=== PATIENT | male | born 1965 | race Caucasian/White ===

== ENCOUNTER 2020-07-09 08:41 | Emergency (ER) | payer OTHER, SELFPAY ==
[2020-07-09 08:48] VITALS: BP 146/80; PULSE 58; RESP 18; TEMP 36.6; O2SAT 98
--- NOTE | 2020-07-09 08:57 | ED.LOWEXIN ---
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 He denies any injury he says he woke up this morning and noticed that there was swelling. He is worried that he may have a blood clot. Says 3 weeks ago he pulled his hamstring. He has an obvious bruise and swelling on his leg. He denies any fever chills or redness Related Data Home Medications Medication Instructions Recorded Confirmed ASPIRIN (Aspir-Low) 81 mg PO QDAY #0 11/09/12 warfarin [Coumadin] 7.5 mg PO #0 11/09/12 warfarin 10 mg PO #0 04/15/17 Review of Systems Review of Systems Narrative: GENERAL: Denies chills,fever HEENT: Denies throat pain RESPIRATORY: Denies dyspnea, cough, wheezing CARDIOVASCULAR: Denies chest pain, palpitations GASTROINTESTINAL: Denies nausea, vomiting MUSCULOSKELETAL: Denies extremity pain, injury SKIN: See HPI NEUROLOGIC: Denies weakness, dizziness, headache, numbness 8 point review of systems is negative except for those stated above and HPI Patient History Surgical History Mitral valve replaced (Acute) Exam Initial Vital Signs Initial Vital Signs: Vital Signs Temperature 97.8 F 07/09/20 08:48 Pulse Rate 58 L 07/09/20 08:48 Respiratory Rate 18 07/09/20 08:48 Blood Pressure 146/80 H 07/09/20 08:48 Pulse Oximetry 98 07/09/20 08:48 GENERAL: Well-appearing, well-nourished and in no acute distress. CARDIOVASCULAR: peripheral pulses in tact, cap refill <2 sec RESPIRATORY: No respiratory distress, speaks in full sentences without difficulty EXTREMITIES: Normal range of motion, no clubbing or edema. Neurovascularly intact NEUROLOGICAL: Cranial nerves II through XII grossly intact. Normal gait and speech. SKIN: No erythema no skin break or bite zulma 9 cm x 3 cm swelling with mild contusion on right medial tibia Course Vital Signs Vital signs: Vital Signs - 8 hr 07/09/20 08:48 Temperature 97.8 F Pulse Rate 58 L Respiratory Rate 18 Blood Pressure 146/80 H Pulse Oximetry 98 MDM - Extremity Injury (Lower) MDM Narrative Medical decision making narrative: Patient is on Coumadin this appears to be a bruise there is no break in the skin no erythema. Recommend he follow-up with his PCP and have his INR checked Discharge Plan Departure Patient Disposition: Home Clinical Impression: Contusion of leg, right Qualifiers: Encounter type: initial encounter Qualified Code(s): S80.11XA - Contusion of right lower leg, initial encounter Discharge Date/Time: 07/09/20 09:07 Instructions: Contusion Activity Restrictions/Additional Instructions: *You have been diagnosed with right leg contusion *What to do: Elevate, ice, may add Christian wrap or compression I expect that this swelling does go down however the bruising may appear worse. Likely because you are on warfarin. Please continue to have your INR checked and monitored with your PCP. *Continue to take medications as directed Tylenol 650 mg every 4-6 hours if needed for pain *Follow up with your primary care provider in 2-3 days *Return to ER if you should have redness increased swelling fever drainage inability to walk or any new, worsening or concerning symptoms Prescriptions: No Action ASPIRIN (Aspir-Low) 81 mg PO QDAY Qty: 0 RF: 0 warfarin [Coumadin] 7.5 MG tablet 7.5 mg PO Qty: 0 RF: 0 warfarin 10 MG tablet 10 mg PO Qty: 0 RF: 0
== END 2020-07-09 09:07 | disposition home or self-care (01) ==
PROVIDERS: Emergency Provider Emergency Medicine
DX: S80.11XA Contusion of right lower leg, initial encounter (principal); Z79.01 Long term (current) use of anticoagulants
CPT/HCPCS: 99281

== ENCOUNTER 2024-06-26 20:37 | Inpatient (IN) | payer OTHER, SELFPAY ==
[2024-06-26] VITALS (10 sets, daily range): BP systolic 118–158; BP diastolic 65–96; PULSE 72–104; RESP 14–22; TEMP 37; O2SAT 93–98; BMI 31.6
--- NOTE | 2024-06-26 20:59 | EKG_ITS ---
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
[2024-06-26 21:05] LABS: Add Manual Diff / Slide Review NO; Basophils Absolute Auto 0 /uL (0-100); Basophils Percent Auto 0.2 % (0-2); Eosinophils Absolute Auto 0 /uL (0-450); Eosinophils Percent Auto 0.3 % (2-4); Hematocrit 50.6 % (41-53); Hemoglobin 16.9 g/dL (13.5-17.5); Lymphocytes Absolute Auto 1300 /uL (1100-4500); Mean Corpuscular HGB Conc 33.4 % (30-36); Mean Corpuscular Hemoglobin 27.8 PG (26-34); Mean Corpuscular Volume 83.4 fL (80-100); Monocytes Absolute Auto 1300 /uL (0-900); Monocytes Percent Auto 8.7 % (3-14); Neutrophils Absolute Auto 11900 /uL (1500-7000); Neutrophils Percent Auto 81.8 % (50-75); Platelet Count 194 X10^3/uL (150-400); Red Blood Cell Count 6.07 X10^6/uL (4.5-5.9); Red Cell Distribution Width 15.8 % (11.6-14.8); White Blood Cell Count 14.6 X10^3/uL (4.5-11.0)
[2024-06-26 21:13] LABS: Ictotest Urine Negative (Negative)
[2024-06-26 21:23] LABS: Alanine Aminotransferase 21 IU/L (<50); Albumin 4.4 g/dL (3.5-5.0); Albumin Globulin Ratio 1.2 (1.0-2.8); Alkaline Phosphatase 56 U/L (38-126); Aspartate Aminotransferase 31 IU/L (17-59); BUN Creatinine Ratio 9.6 (6-22); Bilirubin Total 1.9 mg/dL (0.2-1.3); Blood Urea Nitrogen 11 mg/dL (9-20); Calcium 9.2 mg/dL (8.4-10.2); Carbon Dioxide 19 mmol/L (22-32); Chloride 104 mmol/L (98-107); Estimated Glomerular Filt Rate > 60 mL/min (>60); Globulin 3.7 g/dL (1.7-4.1); Glucose 115 mg/dL (80-110); HEMOLYSIS < 15 (0-50); Lipase 90 U/L (23-300); Potassium 3.9 mmol/L (3.4-5.1); Sodium 133 mmol/L (137-145); Total Protein 8.1 g/dL (6.3-8.2)
--- NOTE | 2024-06-26 21:34 | DI.CT.S_ITS ---
PROCEDURE: CT ABDOMEN PELVIS WO CON INDICATIONS: abd pain TECHNIQUE: Axial sections were acquired from the lung bases to the pubic symphysis. Coronal and sagittal reformats were performed. For radiation dose reduction, the following was used: automated exposure control, adjustment of mA and/or kV according to patient size. COMPARISON: None. FINDINGS: Image quality: Limited by lack of IV contrast. Lower Chest: A small hiatal hernia is incidentally noted. URINARY: Right Kidney: No stones or hydronephrosis. Right Ureter: No hydroureter. Left Kidney: No stones or hydronephrosis. Left Ureter: No hydroureter. Bladder: Moderate generalized bladder wall thickening can be seen. The bladder is decompressed. ABDOMEN: Liver: No contour-deforming solid mass. Gallbladder: No radiopaque gallstones or wall thickening. Biliary ducts: No biliary dilation. Pancreas: No ductal dilation. Spleen: Size is within normal limits. Incidental note is made of an accessory splenule anterior to the primary spleen, as on series 2, image 31. Adrenal Glands: No adrenal nodules. Stomach and Bowel: Focal moderate wall thickening can be seen involving the sigmoid colon, with surrounding inflammatory change, with mild free fluid. No free air is seen. No focal fluid collection is seen to suggest abscess. The more proximal colon demonstrates diverticular formation, yet is otherwise within normal limits. A normal appendix is noted. A few loops of small bowel demonstrate wall thickening within the pelvis, which is attributed to secondary inflammation from the diverticulitis. No dilated loops of small bowel are seen. Peritoneum: No abnormal intraperitoneal fluid. No free air. Ventral Wall: No hernia. Abdominal Nodes: No enlarged retroperitoneal or mesenteric lymph nodes. Vessels: Aorta and inferior vena cava are normal in size. PELVIS: Pelvic Organs: Unremarkable. Pelvic Nodes: Unremarkable. Miscellaneous: No inguinal hernias are seen. Bones: Unremarkable. IMPRESSION: Significant distal colonic diverticulitis, with significant surrounding inflammatory change. No free air or discrete abscess collection can be seen. If there is clinical concern for perforation or abscess, please consider a short-term follow-up study performed with IV and oral contrast (with a long dwell time). When clinically appropriate (following adequate treatment of the patient's current clinical episode) a colonoscopy is recommended for further evaluation for a potential underlying mass (if not already recently done). Moderate generalized bladder wall thickening can be seen. Please correlate with bladder outlet obstruction. Additional findings: Small hiatal hernia Accessory splenule Dictated by: Josue Morris M.D. on 06/26/2024 at 21:02 Approved by: Josue Morris M.D. on 06/26/2024 at 21:06
--- NOTE | 2024-06-26 22:49 | ED_ITS ---
HPI - Abdominal Pain General Chief Complaint: Abdominal Pain Stated Complaint: stomach pain Time Seen by Provider: 06/26/24 20:49 Source: patient Mode of arrival: Ambulatory History of Present Illness HPI narrative: 58-year-old male with history of mitral valve replacement, on chronic warfarin anticoagulation, has left lower quadrant abdominal pain for the last 3 days, no nausea or vomiting, no black or red stools, does not feel feverish. Pain is worse with movements. No blunt injury, penetrating trauma, new activities. He does not feel dizzy or has any sensation of passing out. He is taking his chronic warfarin and other chronic medications. Related Data Home Medications Medication Instructions Recorded Confirmed warfarin 7.5 mg tablet (Coumadin) 7.5 mg PO ##0 11/09/12 warfarin 10 mg tablet 10 mg PO ##0 04/15/17 colchicine gout 06/27/24 levothyroxine 200 mcg tablet 200 mcg PO DAILY 06/27/24 06/27/24 levothyroxine 25 mcg tablet 25 mcg 06/27/24 omeprazole 10 mg capsule,delayed 10 mg PO DAILY 06/27/24 06/27/24 release prednisone PRN Gout 06/27/24 vit C-vit C-yiktwe-ahsuafah capsule cap PO DAILY 06/27/24 Allergies Allergy/AdvReac Type Severity Reaction Status Date / Time No Known Drug Allergies Allergy Verified 06/26/24 20:40 Review of Systems Review of Systems Narrative: see HPI Patient History Surgical History Mitral valve replaced Social History household members: spouse Smoking Status: Former smoker alcohol intake: current Smoking Status: Never smoker alcohol intake frequency: 0-2 drinks per day Substance Use Type: does not use Exam Narrative Exam Narrative: GENERAL: Well-developed patient, in mild distress. HEAD: Atraumatic. Normocephalic. EYES: Pupils equal round and reactive. Extraocular motions intact. No scleral icterus. No injection or drainage. ENT: Nose without bleeding, purulent drainage. Throat without erythema, tonsillar hypertrophy or exudate. Airway patent. NECK: Trachea midline. Non tender CARDIOVASCULAR: Fast rate and regular rhythm without murmurs, gallops, or rubs. RESPIRATORY: Clear to auscultation. Breath sounds equal bilaterally. No wheezes, rales, or rhonchi. GASTROINTESTINAL: Left lower quadrant tenderness, voluntary guarding, no involuntary guarding, no rebound tenderness, no redness or abrasions or vesicles or other skin changes. EXTREMITIES: No edema or joint tenderness. BACK: Nontender without deformity or crepitance. No flank tenderness. NEURO: AOx3. Motor functions grossly nonfocal SKIN: No rash or erythema of visible areas Initial Vital Signs Initial Vital Signs: Vital Signs Temperature 98.6 F 06/26/24 20:40 Pulse Rate 104 H 06/26/24 20:40 Respiratory Rate 17 06/26/24 20:40 Blood Pressure 143/81 H 06/26/24 20:40 Pulse Oximetry 98 06/26/24 20:40 Oxygen Delivery Method Room Air 06/26/24 20:40 Course Orders Ordered: ED Orders 06/26/24 20:48 EKG-12 Lead Stat 06/26/24 20:55 Complete Blood Count AUTO DIFF Stat Comprehensive Metabolic Panel Stat Ictotest Urine Stat Lipase Stat Prothrombin Time INR Stat 06/26/24 20:58 Urine Microscopic Stat 06/26/24 21:34 CT abdomen pelvis wo con Stat Acetaminophen (Acetaminophen 325 Mg Tablet) 650 mg PO Q6H PRN PRN Reason: Fever/Mild Pain (1-3) Hydrocodone Bitart/Acetaminophen (Hydrocodone/Acet 5/325 Tablet) 1 tab PO Q4H PRN PRN Reason: Pain, Moderate (4-6) Hydromorphone HCl (Hydromorphone 0.5 Mg Inj) 0.5 mg IV Q2H PRN PRN Reason: Pain, Severe (7-10) Last Admin: 06/27/24 05:11 Dose: 0.5 mg Documented By: DALY Metronidazole (Flagyl) 250 mg in 50 mls @ 100 mls/hr IV Q8H [facility] Last Infusion: 06/27/24 00:23 Dose: Infused Documented By: Admin: 06/26/24 23:01 Dose: 100 mls/hr Documented By: Sodium Chloride (Normal Saline 0.9%) 1,000 mls @ 100 mls/hr IV CONT [facility] Last Admin: 06/27/24 02:22 Dose: 100 mls/hr Documented By: DALY Ciprofloxacin (Cipro) 400 mg in 200 mls @ 200 mls/hr IV Q12H [facility] Last Admin: 06/27/24 04:22 Dose: 200 mls/hr Documented By: DALY Naloxone HCl (Naloxone 0.4 Mg/Ml Vial) 0.2 mg IV Q2MIN PRN PRN Reason: Opiate Reversal Ondansetron HCl (Ondansetron 4 Mg/2 Ml Inj) 4 mg IV NOW PRN PRN Reason: Nausea And Vomiting Ondansetron HCl (Ondansetron 4 Mg Odt) 4 mg PO NOW PRN PRN Reason: Nausea And Vomiting Ondansetron HCl (Ondansetron 4 Mg/2 Ml Inj) 4 mg IV Q8HR PRN PRN Reason: Nausea And Vomiting Last Admin: 06/27/24 05:23 Dose: 4 mg Documented By: DALY Discontinued Medications Hydromorphone HCl (Hydromorphone 1 Mg Inj) 1 mg IV NOW ONE Stop: 06/26/24 23:13 Last Admin: 06/26/24 23:43 Dose: 1 mg Documented By: Hydromorphone HCl (Hydromorphone 1 Mg Inj) 0.5 mg IV NOW ONE Stop: 06/27/24 00:31 Last Admin: 06/27/24 02:20 Dose: 0.5 mg Documented By: DALY Ciprofloxacin (Cipro) 200 mg in 100 mls @ 100 mls/hr IV Q12H [facility] Last Admin: 06/27/24 00:42 Dose: Not Given Documented By: Piperacillin Sod/Tazobactam (Sod 4.5 gm/ Sodium Chloride) 100 mls @ 200 mls/hr IV NOW ONE Stop: 06/26/24 23:11 Last Infusion: 06/27/24 01:16 Dose: Infused Documented By: Admin: 06/26/24 23:44 Dose: 200 mls/hr Documented By: Vital Signs Vital signs: Vital Signs - 8 hr 06/26/24 21:54 06/26/24 21:54 06/26/24 22:00 Pulse Rate 78 Respiratory Rate Blood Pressure 140/96 H 133/78 Pulse Oximetry 96 Oxygen Delivery Method 06/26/24 22:00 06/26/24 22:30 06/26/24 22:30 Pulse Rate 83 81 Respiratory Rate Blood Pressure 130/73 Pulse Oximetry 93 93 Oxygen Delivery Method 06/26/24 23:00 06/26/24 23:00 06/26/24 23:30 Pulse Rate 74 72 Respiratory Rate 17 15 Blood Pressure 118/71 Pulse Oximetry 95 97 Oxygen Delivery Method Room Air 06/26/24 23:30 06/27/24 00:00 06/27/24 00:00 Pulse Rate 78 Respiratory Rate 11 L Blood Pressure 126/66 122/73 Pulse Oximetry 94 Oxygen Delivery Method 06/27/24 00:30 06/27/24 00:30 Pulse Rate 86 Respiratory Rate 25 H Blood Pressure 127/65 Pulse Oximetry 94 Oxygen Delivery Method MDM - Abdominal Pain Lab Data Attestation: I reviewed the patient's lab results. Lab results narrative: White blood cell count 77281 elevated, hemoglobin 16.9, platelets [id number], serum CO2 19 decreased, anion gap 10. Normal renal function. Glucose 115, potassium 3.9, sodium 133 decreased. Liver functions normal. Lipase normal. 06/27/24 04:54 06/26/24 20:55 Labs: Lab Results 06/26/24 Range/Units 20:55 WBC 14.6 H (4.5-11.0) X10^3/uL RBC 6.07 H (4.5-5.9) X10^6/uL Hgb 16.9 (13.5-17.5) g/dL Hct 50.6 (41-53) % MCV 83.4 (80-100) fL MCH 27.8 (26-34) PG MCHC 33.4 (30-36) % RDW 15.8 H (11.6-14.8) % Plt Count 194 (150-400) X10^3/uL Neut % (Auto) 81.8 H (50-75) % Lymph % (Auto) 9.0 L (25-40) % [place] % (Auto) 8.7 (3-14) % Eos % (Auto) 0.3 L (2-4) % Baso % (Auto) 0.2 (0-2) % Neut # (Auto) 04935 H (1480-7943) /uL Lymph # (Auto) 1300 (2422-7788) /uL [place] # (Auto) 1300 H (0-900) /uL Eos # (Auto) 0 (0-450) /uL Baso # (Auto) 0 (0-100) /uL PT 48.4 H (9.4-12.5) SECONDS INR 4.2 H (0.9-1.3) Sodium 133 L (137-145) mmol/L Potassium 3.9 (3.4-5.1) mmol/L Chloride 104 (98-107) mmol/L Carbon Dioxide 19 L (22-32) mmol/L BUN 11 (9-20) mg/dL Creatinine 1.15 (0.66-1.25) mg/dL Estimated GFR > 60 (>60) mL/min BUN/Creatinine Ratio 9.6 (6-22) Glucose 115 H (80-110) mg/dL Calcium 9.2 (8.4-10.2) mg/dL Total Bilirubin 1.9 H (0.2-1.3) mg/dL AST 31 (17-59) IU/L ALT 21 (<50) IU/L Alkaline Phosphatase 56 (38-126) U/L Total Protein 8.1 (6.3-8.2) g/dL Albumin 4.4 (3.5-5.0) g/dL Globulin 3.7 (1.7-4.1) g/dL Albumin/Globulin Ratio 1.2 (1.0-2.8) Lipase 90 (23-300) U/L Ur Bilirubin Confirm Negative (Negative) Point of care testing: Urine Dip Bedside Urine Glucose Negative Bedside Urine Bilirubin ++ 2 Bedside Urine Ketone +++ 80 Urine Specific [place] 1.02 Bedside Urine Occult Blood ++ Bedside Urine pH 5.0 Bedside Urine Protein + 30 Bedside Urine Urobilinogen +/- 1mg Bedside Urine Nitrite - Negative Bedside Urine Leukocytes +/- [address] scan - abdomen/pelvis: Radiologist's Impression: Close Abdomen/Pelvis CT (Signed) Josue Morris - 06/26/[address] [address] [address] Scan Report Signed Patient: Yimi Gibbs MR#: [id number] : 1965 Acct:[id number] Age/Sex: 58 / M Date of Service: 06/26/24 Loc: ED Accession Number: [id number] Procedure: CT abdomen pelvis wo con Ordering Provider: Gómez Evans MD PROCEDURE: CT ABDOMEN PELVIS WO CON INDICATIONS: abd pain TECHNIQUE: Axial sections were acquired from the lung bases to the pubic symphysis. Coronal and sagittal reformats were performed. For radiation dose reduction, the following was used: automated exposure control, adjustment of mA and/or kV according to patient size. COMPARISON: None. FINDINGS: Image quality: Limited by lack of IV contrast. Lower Chest: A small hiatal hernia is incidentally noted. URINARY: Right Kidney: No stones or hydronephrosis. Right Ureter: No hydroureter. Left Kidney: No stones or hydronephrosis. Left Ureter: No hydroureter. Bladder: Moderate generalized bladder wall thickening can be seen. The bladder is decompressed. ABDOMEN: Liver: No contour-deforming solid mass. Gallbladder: No radiopaque gallstones or wall thickening. Biliary ducts: No biliary dilation. Pancreas: No ductal dilation. Spleen: Size is within normal limits. Incidental note is made of an accessory splenule anterior to the primary spleen, as on series 2, image 31. Adrenal Glands: No adrenal nodules. Stomach and Bowel: Focal moderate wall thickening can be seen involving the sigmoid colon, with surrounding inflammatory change, with mild free fluid. No free air is seen. No focal fluid collection is seen to suggest abscess. The more proximal colon demonstrates diverticular formation, yet is otherwise within normal limits. A normal appendix is noted. A few loops of small bowel demonstrate wall thickening within the pelvis, which is attributed to secondary inflammation from the diverticulitis. No dilated loops of small bowel are seen. Peritoneum: No abnormal intraperitoneal fluid. No free air. Ventral Wall: No hernia. Abdominal Nodes: No enlarged retroperitoneal or mesenteric lymph nodes. Vessels: Aorta and inferior vena cava are normal in size. PELVIS: Pelvic Organs: Unremarkable. Pelvic Nodes: Unremarkable. Miscellaneous: No inguinal hernias are seen. Bones: Unremarkable. IMPRESSION: Significant distal colonic diverticulitis, with significant surrounding inflammatory change. No free air or discrete abscess collection can be seen. If there is clinical concern for perforation or abscess, please consider a short-term follow-up study performed with IV and oral contrast (with a long dwell time). When clinically appropriate (following adequate treatment of the patient's current clinical episode) a colonoscopy is recommended for further evaluation for a potential underlying mass (if not already recently done). Moderate generalized bladder wall thickening can be seen. Please correlate with bladder outlet obstruction. Additional findings: Small hiatal hernia Accessory splenule Dictated by: Josue Morris M.D. on 06/26/2024 at 21:02 Approved by: Josue Morris M.D. on 06/26/2024 at 21:06 ECG Data Attestation: I personally reviewed and interpreted this ECG as follows: Interpretation: Normal sinus rhythm with rate of 95, no obvious ST segment elevation or depression changes. PACs noted. LVH noted. ST segment depression lead 1 noted. NV 132, QRS 86, QTC 437. MDM Narrative Medical decision making narrative: 58-year-old male with history of chronic anticoagulation with warfari, has left- sided abdominal pain. Triage concern for possible kidney stones, CT abdomen and pelvis ordered. IV Dilaudid. Takes warfarin, we will avoid Toradol for now. Labs pending including INR. Keep NPO White blood cell count 48651, LFTs unremarkable, lipase negative. CT shows ?Significant distal colonic diverticulitis, with significant surrounding inflammatory change, no free air or discrete abscess. Moderate generalized gallbladder wall thickening also seen. Incidental small hiatal hernia and accessory splenule noted. See radiology report. IV Zosyn Patient still in pain, will repeat IV Dilaudid dose. INR 4.2 elevated, no active bleeding, over anticoagulated, significant tenderness, significant severe inflammatory change in the distal colon with diverticulitis on CT report, consider admission. Patient prefers admission. Will contact hospitalist. [phone], call back from hospitalist, accepts patient for admission to inpatient Discharge Plan Departure Patient Disposition: Admitted As Inpatient Clinical Impression: Abdominal pain, Diverticulitis, History of warfarin therapy Admit Date/Time: 06/27/24 00:57 Admit Provider: Frank Rodriguez
[2024-06-26] MEDS: metroNIDAZOLE 250 MG/50 ML PIGGYBACK 100 MG IV (23:01)
[2024-06-26 23:14] LABS: INR 4.2 (0.9-1.3); Prothrombin Time 48.4 SECONDS (9.4-12.5)
[2024-06-26] MEDS: HYDROMORPHONE 1 MG INJ IV (23:43)
[2024-06-26] MEDS: PIPERACILLIN/TAZO 4.5 GM in SODIUM CHLORIDE 0.9% 100 ML IV (23:44)
[2024-06-27] VITALS (7 sets, daily range): BP systolic 98–134; BP diastolic 63–79; PULSE 77–99; RESP 11–25; TEMP 36.7–37.3; O2SAT 91–100; BMI 31.6
[2024-06-27] MEDS: HYDROMORPHONE 1 MG INJ 0.5 MG IV (02:20)
[2024-06-27] MEDS: SODIUM CHLORIDE 0.9% 1,000 ML 100 ML IV (02:22)
[2024-06-27] MEDS: CIPROFLOXACIN 400 MG/200 ML PIGGYBACK 200 MG IV (04:22)
[2024-06-27] MEDS: HYDROMORPHONE 0.5 MG INJ IV (05:11)
[2024-06-27] MEDS: ONDANSETRON 4 MG/2 ML INJ IV (05:23)
[2024-06-27 05:32] LABS: Add Manual Diff / Slide Review NO; Basophils Absolute Auto 100 /uL (0-100); Basophils Percent Auto 0.6 % (0-2); Eosinophils Absolute Auto 0 /uL (0-450); Eosinophils Percent Auto 0.1 % (2-4); Hematocrit 47.4 % (41-53); Hemoglobin 15.7 g/dL (13.5-17.5); Lymphocytes Absolute Auto 1000 /uL (1100-4500); Lymphocytes Percent Auto 7.1 % (25-40); Mean Corpuscular HGB Conc 33.1 % (30-36); Mean Corpuscular Hemoglobin 27.8 PG (26-34); Monocytes Absolute Auto 1100 /uL (0-900); Monocytes Percent Auto 8.4 % (3-14); Neutrophils Absolute Auto 11300 /uL (1500-7000); Neutrophils Percent Auto 83.8 % (50-75); Platelet Count 151 X10^3/uL (150-400); Red Blood Cell Count 5.64 X10^6/uL (4.5-5.9); Red Cell Distribution Width 16.1 % (11.6-14.8); White Blood Cell Count 13.5 X10^3/uL (4.5-11.0)
[2024-06-27 05:44] LABS: INR 3.2 (0.9-1.3); Prothrombin Time 36.6 SECONDS (9.4-12.5)
[2024-06-27 05:53] LABS: Alanine Aminotransferase 18 IU/L (<50); Albumin 3.8 g/dL (3.5-5.0); Albumin Globulin Ratio 1.2 (1.0-2.8); Alkaline Phosphatase 42 U/L (38-126); Aspartate Aminotransferase 25 IU/L (17-59); BUN Creatinine Ratio 9.2 (6-22); Bilirubin Total 2.1 mg/dL (0.2-1.3); Blood Urea Nitrogen 12 mg/dL (9-20); Calcium 8.5 mg/dL (8.4-10.2); Carbon Dioxide 23 mmol/L (22-32); Chloride 102 mmol/L (98-107); Estimated Glomerular Filt Rate > 60 mL/min (>60); Globulin 3.1 g/dL (1.7-4.1); Glucose 119 mg/dL (80-110); HEMOLYSIS < 15 (0-50); Potassium 3.6 mmol/L (3.4-5.1); Sodium 133 mmol/L (137-145); Total Protein 6.9 g/dL (6.3-8.2)
[2024-06-27] MEDS: metroNIDAZOLE 250 MG/50 ML PIGGYBACK 100 MG IV (06:19)
--- NOTE | 2024-06-27 06:46 | PM.HP.1 ---
History of Present Illness History of Present Illness Chief complaint: stomach pain Narrative: 58 year old male with past medical history of mitral valve replacement on chronic Coumadin presents with abdominal pain. Per the patient's report, over the last three days, the patient started to left left lower quadrant abdominal pain. The patient described his pain as sharp, and severe in nature. The patient denies any nausea, vomiting, diarrhea, G.I. bleeding, fever, chills, chest, pain, and shortness of breath. In our emergency room, the patient was hemodynamically stable. WBC was 14 and INR 4.2. Other lab were benign. CT scan shows acute diverticulitis. Patient was given IVF and IV Flagyl/Ciprofloxacin. The patient otherwise was not septic. [facility] Surgical History Mitral valve replaced Social History household members: spouse Smoking Status: Former smoker alcohol intake: current Meds Home Medications and Allergies Home Medications Medication Instructions Recorded Confirmed Type warfarin 7.5 mg tablet (Coumadin) 7.5 mg PO ##0 11/09/12 History warfarin 10 mg tablet 10 mg PO ##0 04/15/17 History colchicine gout 06/27/24 History levothyroxine 200 mcg tablet 200 mcg PO DAILY 06/27/24 06/27/24 History levothyroxine 25 mcg tablet 25 mcg 06/27/24 History omeprazole 10 mg capsule,delayed 10 mg PO DAILY 06/27/24 06/27/24 History release prednisone PRN Gout 06/27/24 History vit C-vit Z-scajck-oesudibd capsule cap PO DAILY 06/27/24 History Allergies Allergy/AdvReac Type Severity Reaction Status Date / Time No Known Drug Allergies Allergy Verified 06/26/24 20:40 Review of Systems Review of Systems ROS: Yes All systems reviewed with the patient and are negative except as otherwise documented Exam Vital Signs (past 8 hours): - 06/26/24 23:00 06/26/24 23:00 06/26/24 23:30 Temperature Pulse Rate 74 72 Respiratory Rate 17 15 Blood Pressure 118/71 Pulse Oximetry 95 97 Oxygen Delivery Method Room Air Oxygen Flow Rate 06/26/24 23:30 06/27/24 00:00 06/27/24 00:00 Temperature Pulse Rate 78 Respiratory Rate 11 L Blood Pressure 126/66 122/73 Pulse Oximetry 94 Oxygen Delivery Method Oxygen Flow Rate 06/27/24 00:30 06/27/24 00:30 06/27/24 01:00 Temperature Pulse Rate 86 88 Respiratory Rate 25 H 24 Blood Pressure 127/65 Pulse Oximetry 94 94 Oxygen Delivery Method Oxygen Flow Rate 06/27/24 01:00 06/27/24 01:31 Temperature 99.0 F Pulse Rate 77 Respiratory Rate 14 Blood Pressure 134/69 131/79 Pulse Oximetry 97 Oxygen Delivery Method Oxygen Flow Rate 0 Oxygen Delivery Method Room Air Oxygen Flow Rate 0 Narrative Exam Narrative: GENERAL: The patient is not in any acute distressed. Awake and alert. HEENT: Nonicteric sclerae, PERRLA, EOMI. Oropharynx clear. Moist mucous membranes. Conjunctivae appear well perfused. HEART: Regular rate and rhythm without murmurs. No lower extremities edema. LUNGS: Clear to auscultation bilaterally. No wheezing, crackles or rhonchi ABDOMEN: Soft, positive bowel sounds, LLQ tender without rebound. SKIN: No rash, no excessive bruising, petechiae, or purpura. NEUROLOGIC: AxO x 3. Cranial nerves II-XII intact without motor/sensory deficit. Objective Labs 06/27/24 04:54 06/27/24 04:54 Labs: Laboratory Results - last 24 hr 06/26/24 06/27/24 20:55 04:54 WBC 14.6 H 13.5 H RBC 6.07 H 5.64 Hgb 16.9 15.7 Hct 50.6 47.4 MCV 83.4 84.0 MCH 27.8 27.8 MCHC 33.4 33.1 RDW 15.8 H 16.1 H Plt Count 194 151 Neut % (Auto) 81.8 H 83.8 H Lymph % (Auto) 9.0 L 7.1 L [place] % (Auto) 8.7 8.4 Eos % (Auto) 0.3 L 0.1 L Baso % (Auto) 0.2 0.6 Neut # (Auto) 38226 H 50055 H Lymph # (Auto) 1300 1000 L Clark # (Auto) 1300 H 1100 H Eos # (Auto) 0 0 Baso # (Auto) 0 100 PT 48.4 H 36.6 H D INR 4.2 H 3.2 H Sodium 133 L 133 L Potassium 3.9 3.6 Chloride 104 102 Carbon Dioxide 19 L 23 BUN 11 12 Creatinine 1.15 1.30 H Estimated GFR > 60 > 60 BUN/Creatinine Ratio 9.6 9.2 Glucose 115 H 119 H Calcium 9.2 8.5 Total Bilirubin 1.9 H 2.1 H AST 31 25 ALT 21 18 Alkaline Phosphatase 56 42 Total Protein 8.1 6.9 Albumin 4.4 3.8 Globulin 3.7 3.1 Albumin/Globulin Ratio 1.2 1.2 Lipase 90 Ur Bilirubin Confirm Negative Assessment & Plan Assessment & Plan narrative: Acute diverticulitis. Admit the patient to medical telemetry as inpatient. Clear liquid diet. No clear evidence of abscess on CT. Continue IV flagyl and Cipro. If condition does not improve, consider re-imaging to re-assess for abscess. Supertherapeutic INR. INR currently 4.2. Hold coumadin for now and recheck in AM. Consider consulting pharmacy to manage coumadin. History of mitral valve replacement. As above DVT prophylaxis superatherapeutic INR. Code status full code. Disposition likely home in two days. Time-Based Coding :: [TOTAL MINUTES] spent with patient and on the chart (including review of chart, obtaining history, exam, reviewing outside data, placing orders, documenting exam and treatment plan, and counseling patient) on [DATE].
--- NOTE | 2024-06-27 08:22 | PC.NURSE ---
Patient would like to start on his oral medications for pain. He is on a clear liquid diet and denies nausea or any vomiting. BT are hypoactive, patient is independent in his room and he is tolerating his clear liquids.
[2024-06-27] MEDS: HYDROCODONE/ACET 5/325 TABLET 1 TAB PO ×2 (08:28→12:34)
--- NOTE | 2024-06-27 14:08 | PM.DS.1 ---
History of Present Illness History of Present Illness Date Patient Seen: 06/27/24 Time Patient Seen: 10:50 Date of Onset of Symptoms: 06/26/24 Chief complaint: stomach pain Narrative: 58 year old male with past medical history of mitral valve replacement on chronic Coumadin presents with abdominal pain. Per the patient's report, over the last three days, the patient started to left left lower quadrant abdominal pain. The patient described his pain as sharp, and severe in nature. The patient denies any nausea, vomiting, diarrhea, G.I. bleeding, fever, chills, chest, pain, and shortness of breath. In our emergency room, the patient was hemodynamically stable. WBC was 14 and INR 4.2. Other lab were benign. CT scan shows acute diverticulitis. Patient was given IVF and IV Flagyl/Ciprofloxacin. The patient otherwise was not septic. Discharge Providers Provider Date of admission: 06/27/24 00:57 Discharge Date: 06/27/24 Discharge provider: Ger Gomez MD Summary Hospital Course Discharge Diagnosis: 1. Acute diverticulitis 2. Aortic valve replacement, on chronic anticoagulation 3. Supratherapeutic INR on initial presentation, 3.2 at discharge Hospital Course: The patient was admitted and administered IV antibiotics, IV hydration and opioid pain control measures. He improved significantly over the 1st 2 hours of admission and was highly motivated for discharge home on an outpatient regimen. He was clinically stable and feeling well, and no other issues arose. He is encouraged to arrange close outpatient follow-up for the purpose of protime monitoring and clinical follow-up. A BRAT low-fiber diet is recommended with further direction per his primary care provider within 1 week follow-up. Outpatient colonoscopy was advised following resolution. Status at Discharge Cognitive/behavioral status at discharge: oriented Functional status at discharge: independent ambulation Overall status at discharge: patient is progressing back to baseline Time Spent with Patient Time spent: Greater than 30 minutes Exam Vital Signs (past 8 hours): - 06/27/24 08:00 06/27/24 12:00 Temperature 98.9 F 98.1 F Pulse Rate 87 99 H Respiratory Rate 18 17 Blood Pressure 107/75 98/68 Pulse Oximetry 100 95 Oxygen Flow Rate 0 0 Oxygen Delivery Method Room Air Oxygen Flow Rate 0 Narrative Exam Narrative: GENERAL: The patient is not in any acute distressed. Awake and alert. Walking in halls, appears comfortable. HEENT: Nonicteric sclerae, PERRLA, EOMI. Oropharynx clear. Moist mucous membranes. HEART: Regular rate and rhythm without murmurs. LUNGS: Clear to auscultation bilaterally. ABDOMEN: Soft, positive bowel sounds, LLQ tender without rebound. EXTREMITIES: No lower extremities edema. SKIN: No rash or skin lesions. Multiple tattoos noted. NEUROLOGIC: AxO x 3. Cranial nerves II-XII intact without motor/sensory deficit. Objective Imaging CT scan - abdomen: Radiologist's impression: Significant distal colonic diverticulitis, with significant surrounding inflammatory change. No free air or discrete abscess collection can be seen. If there is clinical concern for perforation or abscess, please consider a short-term follow-up study performed with IV and oral contrast (with a long dwell time). When clinically appropriate (following adequate treatment of the patient's current clinical episode) a colonoscopy is recommended for further evaluation for a potential underlying mass (if not already recently done). Moderate generalized bladder wall thickening can be seen. Please correlate with bladder outlet obstruction. Labs 06/27/24 04:54 06/27/24 04:54 Labs: Laboratory Results - last 24 hr 06/26/24 06/27/24 20:55 04:54 WBC 14.6 H 13.5 H RBC 6.07 H 5.64 Hgb 16.9 15.7 Hct 50.6 47.4 MCV 83.4 84.0 MCH 27.8 27.8 MCHC 33.4 33.1 RDW 15.8 H 16.1 H Plt Count 194 151 Neut % (Auto) 81.8 H 83.8 H Lymph % (Auto) 9.0 L 7.1 L [place] % (Auto) 8.7 8.4 Eos % (Auto) 0.3 L 0.1 L Baso % (Auto) 0.2 0.6 Neut # (Auto) 95040 H 69460 H Lymph # (Auto) 1300 1000 L [place] # (Auto) 1300 H 1100 H Eos # (Auto) 0 0 Baso # (Auto) 0 100 PT 48.4 H 36.6 H D INR 4.2 H 3.2 H Sodium 133 L 133 L Potassium 3.9 3.6 Chloride 104 102 Carbon Dioxide 19 L 23 BUN 11 12 Creatinine 1.15 1.30 H Estimated GFR > 60 > 60 BUN/Creatinine Ratio 9.6 9.2 Glucose 115 H 119 H Calcium 9.2 8.5 Total Bilirubin 1.9 H 2.1 H AST 31 25 ALT 21 18 Alkaline Phosphatase 56 42 Total Protein 8.1 6.9 Albumin 4.4 3.8 Globulin 3.7 3.1 Albumin/Globulin Ratio 1.2 1.2 Lipase 90 Ur Bilirubin Confirm Negative [facility] History Mitral valve replaced Social History household members: spouse Smoking Status: Former smoker alcohol intake: current Discharge Plan Discharge Plan Patient Disposition: Home Provider Discharge Comment: Followup with Dr. Horton within 1 week; Protime followup in 3 days; BRAT low-fiber diet, advance as directed by primary care provider Discharge orders & Medications Prescriptions: New hydrocodone-acetaminophen 5-325 mg Tablet 1 tab PO Q4H PRN (Reason: Pain, Moderate (4-6)) Qty: 20 0RF amoxicillin-pot clavulanate 875-125 mg tablet 1 tab PO BID Qty: 14 0RF Continued warfarin [Coumadin] 7.5 MG tablet 7.5 mg PO Qty: 0 Rx Instructions: fri and friday warfarin 10 MG tablet 10 mg PO Qty: 0 Rx Instructions: all other days except Fri and Friday omeprazole 10 mg Capsule,Delayed Release(Dr/Ec) 10 mg PO DAILY vit C-vit X-piqnyn-djgfmdeh Capsule PO DAILY Patient Comments: pt unsure of dose levothyroxine 200 mcg Tablet 200 mcg PO DAILY levothyroxine 25 mcg Tablet 25 mcg colchicine Patient Comments: pt unsure of dose prednisone PRN (Reason: Gout) Patient Comments: pt unsure of dose Visit Report/Discharge Packet Stand Alone Forms: Patient Portal/API Quality MIPS - Admit I confirm the patient?s Advance Care Plan is present, Code status is documented, Surrogate decision maker is in patient?s record [If Yes, STOP here]: Yes MIPS - Meds 'Current medications' to include all prescriptions, akwo-wfp-phhhouh products, herbals, cannabis/cannabidiol products, and vitamin/mineral/dietary (nutritional) supplements. I have utilized all available resources to obtain, update, or review the patient?s current medications. [If Yes, STOP here]: Yes MIPS - DC The patient has a history of heart transplant or Left Ventricular Assist Device (LVAD). If yes, STOP here.: No The patient has current or prior documentation of left ventricular ejection fraction (LVEF) less than or equal to 40%, or moderate or severely depressed left ventricular systolic function.: No A. The patient was prescribed or already taking an Angiotensin-Converting Enzyme (JAXON) Inhibitor, or Angiotensin Receptor Cheri (ARB).: No B. The patient was prescribed or already taking a beta-cheri. [If Yes to Both A & B, STOP here]: No Patient not prescribed/taking JAXON or ARB, no reason given.: No Patient not prescribed/taking beta-cheri, no reason given.: No PROFEE Charge Codes Discharge inpatient/observation: 21512
--- NOTE | 2024-06-27 14:12 | CM.DANOTE ---
DCP Assessment note pt is a 58yo M here with diverticulitis. PCP Dr. Lenard Ramos, [facility] Payer commercial ins and self pay MEDICAL OFFICE SCHEDULER reviewed EMR. Per RN, able to advance diet from clear liquid to BRAT and tolerated well. improved significantly with IV abx. dc order in. MEDICAL OFFICE SCHEDULER met briefly with pt in room, introduced self and role. pt lives in [place] with spouse. Indep/active/works. Feels better eager to dc home. Denies any CM needs at this time. P: home with spouse support and close OP F/u recommended. No identified barriers to safe dc home at this time. CM team will continue to follow as needed DAMON Correa Discharge Planning/Care Management CM Discharge Assessment Start: 06/27/24 14:10 Freq: Status: Active Protocol: Document 06/27/24 14:11 (Rec: 06/27/24 14:12 [id number]) Discharge Planning Assessment Assigned Grape Picker DAMON Jarrett DPOA/Assigned Designee Name Nusrat (spouse) Contact Information [phone] Advance Directives? No History Provided By Patient Prior Living Arrangements House Household Members spouse Type of transporation used prior to Drives own vehicle admit Independent with ADL's Yes Is patient alert and oriented? Yes Barriers to Discharge No Discharge Plan Home Transportation Arrangement family Review Status In Process Please Provide Date Initial DC 06/27/24 Assessment Was Performed Next Review Type Continued Stay Review
== END 2024-06-27 14:44 | disposition home or self-care (01) | DRG 392 ==
LOC: ED 06-27 00:56 → AC 06-27 00:57
PROVIDERS: Admitting Provider Internal Medicine; Emergency Provider Emergency Medicine; Referring Provider Emergency Medicine; Visit Provider Internal Medicine
DX: K57.32 Diverticulitis of large intestine without perforation or abscess without bleeding (principal); R79.1 Abnormal coagulation profile; Z79.01 Long term (current) use of anticoagulants; Z95.2 Presence of prosthetic heart valve; Z87.891 Personal history of nicotine dependence
CPT/HCPCS: 36415; 74176; 80053; 81003; 83690; 85025; 85610; 93005; 96365; 96367; 96368; 96375; 99284; 99285; J0744; J1171; J2405; J2543

== ENCOUNTER → 2024-08-14 07:47 | Outpatient (CLI) | payer OTHER, SELFPAY ==
[2024-06-27 01:15] VITALS: BMI 31.6
[2024-08-14 08:22] LABS: Estimated Glomerular Filt Rate > 60 mL/min (>60)
== END ==
PROVIDERS: Radiology Diagnostic Radiology; PCP Family Medicine; Referring Provider Surgery; Visit Provider Surgery
DX: K57.92 Diverticulitis of intestine, part unspecified, without perforation or abscess without bleeding (principal)
CPT/HCPCS: 36415; 82565

== ENCOUNTER → 2024-08-16 06:24 | Outpatient (CLI) | payer OTHER, SELFPAY ==
[2024-06-27 01:15] VITALS: BMI 31.6
--- NOTE | 2024-08-16 06:25 | DI.CT.S_ITS ---
PROCEDURE: CT ABDOMEN PELVIS W CON INDICATIONS: Diverticulitis TECHNIQUE: After the administration of intravenous contrast, axial sections acquired from the lung bases to the pubic symphysis. Coronal and sagittal reformats were performed. For radiation dose reduction, the following was used: automated exposure control, adjustment of mA and/or kV according to patient size. COMPARISON: [facility], CT, CT ABDOMEN PELVIS WO CON, 06/26/2024, 21:54. FINDINGS: Image quality: Diagnostic Lower chest: Basal atelectasis/scarring. Possible small hiatal hernia. Density seen at the cardiac annulus may be dense calcification versus valve device. Liver: There are small subcentimeter lesions, too small to characterize, usually cysts or hemangiomas. Gallbladder and biliary system: Unremarkable, nondilated Pancreas: No ductal dilation Spleen: Nonenlarged Adrenals: No discrete nodules Kidneys: No solid mass or hydronephrosis. Vessels and lymph nodes: The main portal vein appears patent. No abdominal aortic aneurysm. No pathologic lymph nodes by size criteria. Bowel and peritoneum: No small bowel obstruction. Colonic diverticula are present. Wall thickening is seen throughout the upper rectum and sigmoid colon. There is thickening of the peritoneal reflection. No discrete drainable abscess. Fat stranding is seen throughout the left lower quadrant region. Nondilated appendix. No small bowel obstruction. Body wall: Unremarkable Pelvis: Bladder is under distended not well assessed. Wall thickening is present. Prostate is also not well evaluated on CT. There is focal enhancement of the left apex (2/154). Bones: Deformity of the right ischial region with some heterotopic ossification, similar to prior, usually from prior injury. Background lumbosacral degenerative changes are seen. IMPRESSION: Distal colon and upper rectal findings described above are suspicious for acute on chronic diverticulitis. A colonoscopy is recommended if not already performed recently to assess for any underlying lesions. No drainable abscess. Under distended bladder not well assessed, there is wall thickening. Correlate urinalysis. There is focal enhancement of the left apex prostate peripheral zone. Correlate with PSA and possible prostate MRI if clinically indicated. Other findings above Dictated by: George Palacios M.D. on 08/16/2024 at 11:05 Approved by: George Palacios M.D. on 08/16/2024 at 11:10
== END ==
LOC: CT 06:25
PROVIDERS: PCP Family Medicine; Referring Provider Surgery; Visit Provider Surgery
DX: K57.92 Diverticulitis of intestine, part unspecified, without perforation or abscess without bleeding (principal)
CPT/HCPCS: 74177; Q9967

== ENCOUNTER → 2025-02-01 07:58 | Outpatient (CLI) | payer OTHER, SELFPAY ==
[2024-06-27 01:15] VITALS: BMI 31.6
--- NOTE | 2025-02-01 08:02 | DI.ECHO.S_ITS ---
[facility] : : [address] : : [place] : : [id number] : : Phone: [phone] Echocardiogram Report + + :Name: MACARENA MENDEZ Study Date: 02/01/2025 Height: 75 in : :[facility] ReadingLocation: Weight: 265 lb : : Gender: Male BSA: 2.5 m2 : :: 1965 Age: 59 yrs BP: 146/92 mmHg: :Reason For Study: ISCHEMIC HEART DISEASE : :Ordering Physician: AYDEE, : :TJ Performed By: Bobby Valderrama : :Referring: TJ BAJWA : + + Interpretation Summary The ejection fraction is estimated to be 55-60%. Left ventricular wall thickness is mildly increased. There is a mechanical aortic valve. The peak aortic velocity is 3.07 m/sec. The peak aortic velocity on the previous exam was 2.5 m/sec in 2013 Overall well-functioning mechanical valve. There is mild tricuspid regurgitation. The ascending aorta is mildly enlarged. Procedure: A two-dimensional transthoracic echocardiogram with color flow and Doppler was performed. The study quality was technically good. Comparison is made with the echocardiogram of 11/09/2012. The heart rate ranged between 54- 130 bpm during the study. Left Ventricle: The left ventricle is normal in size. Left ventricular wall thickness is mildly increased. There is no ventricular septal defect visualized. The ejection fraction is estimated to be 55-60%. There are no focal wall motion abnormalities. Diastolic parameters suggest probable normal left ventricular diastolic function and normal filling pressures. Right Ventricle: The right ventricle is mildly dilated. The right ventricular systolic function is normal. Atria: The left atrium is moderately dilated. The right atrium is moderately dilated. The interatrial septum is not well visualized. Mitral Valve: The mitral valve leaflets appear mildly thickened, but open well. There is trace mitral regurgitation. Aortic Valve: There is a mechanical aortic valve. The peak aortic velocity is 3.07 m/sec. The aortic valve mean gradient is 20.2 mmHg. The peak aortic velocity on the previous exam was 2.5 m/sec. No aortic regurgitation is present. Tricuspid Valve: The tricuspid valve leaflets are thin and pliable. There is mild tricuspid regurgitation. Pulmonic Valve: The pulmonic valve is not well seen, but is grossly normal. There is no pulmonic valvular regurgitation. Great Vessels: The aortic root is mildly dilated. The ascending aorta is mildly enlarged. The pulmonary artery is normal size. The inferior vena cava was not visualized. Pericardium/ Pleura There is no pericardial effusion. MMode/2D Measurements & Calculations LVIDd: 5.7 cm LVOT diam: 2.0 cm LVIDs: 4.0 cm Ao root diam: 3.7 cm FS: 29.6 % asc Aorta Diam: 3.8 cm EPSS: 0.96 cm IVSd: 1.1 cm LVPWd: 1.1 cm LV self. diameter/BSA (cm/m^2): 2.3 LV sys. diameter/BSA (cm/m^2): 1.6 LA A2 area: 25.7 cm2 RA long axis: 5.7 cm LA A4 area: 34.3 cm2 RA area: 24.0 cm2 LA length (vol): 7.8 cm RA vol: 86.4 ml LA vol: 96.2 ml RA : 35.0 ml/m2 LA vol index: 38.9 ml/m2 RVD1 (basal): 4.4 cm RVD2 (mid): 3.5 cm TAPSE: 2.0 cm Doppler Measurements & Calculations Ao V2 max: 307.1 cm/sec LVOT Max [place]: 94.1 cm/sec Ao V2 mean: 211.5 cm/sec LV V1 max P.5 mmHg Ao max P.7 mmHg LV V1 VTI: 20.4 cm Ao mean P.2 mmHg COURTNEY(I,D): 1.1 cm2 Ao V2 VTI: 59.6 cm COURTNEY(V,D): 0.95 cm2 sev ratio: 0.34 COURTNEY indexed to BSA (cm^2/m^2): 0.43 MV E max dale: 81.1 cm/sec TR max dale: 307.3 cm/sec MV A max dale: 29.2 cm/sec TR max P.8 mmHg MV E/A: 2.8 PA V2 max: 140.4 cm/sec Med Peak E' Dale: 8.8 cm/sec PA V2 mean: 90.5 cm/sec E/E' med: 9.2 PA mean P.7 mmHg Lat Peak E' Dale: 11.4 cm/sec PA pr(Accel): 55.0 mmHg E/E' lat: 7.1 E/e' average: 8.1 MV dec time: 0.15 sec SV(LVOT): 63.4 ml Reading Physician:10:22 AM
== END ==
LOC: ECHO 08:01
PROVIDERS: PCP Family Medicine; Referring Provider Orthopaedic Surgery; Visit Provider Orthopaedic Surgery
DX: I07.1 Rheumatic tricuspid insufficiency (principal); I25.9 Chronic ischemic heart disease, unspecified; I77.89 Other specified disorders of arteries and arterioles; I77.810 Thoracic aortic ectasia; Z95.2 Presence of prosthetic heart valve
CPT/HCPCS: 93306